=== PATIENT | male | born 1960 | race Caucasian/White ===

== ENCOUNTER 2017-05-27 18:41 | Emergency (ER) | payer OTHER ==
[2017-05-27 18:54] VITALS: RESP 16
--- NOTE | 2017-05-27 18:59 | EDPHY ---
H & P Stated Complaint: R LEG PAIN, REPORTED DVT Time Seen by Provider: 05/27/17 18:51 HPI/ROS: 57-year-old male referred from his primary care physician's office for treatment of a deep vein thrombosis in his right leg. Began having right calf pain and swelling approximately 8 days ago. He travels for work and quite frequently. At that time he went to an urgent care where they diagnosed a tendinitis, however he continued to have pain and worsened swelling and felt he had no reason for a tendinitis. He was seen by his PCP 2 day who referred him for an ultrasound which was positive for deep vein thrombosis. He denies fevers chills, he denies chest pain he denies shortness of breath. He has no family history of clotting disorders. Review of systems As per HPI General no fever no chills no weakness HEENT no eye pain no eye discharge. No eye redness, no sore throat Respiratory no cough, no shortness of breath Cardiac no chest pain, no peripheral edema GI no abdominal pain, no diarrhea, no constipation, no nausea, no vomiting no flank pain, no hematuria, no dysuria Musculoskeletal no myalgias, no joint pain, positive leg edema Heme no easy bruising, no easy bleeding Endo no polyuria, no polydipsia Skin no rashes, no pruritus Neuro no syncope, no dizziness, no headaches Psych is no suicidal ideation, no homicidal ideation Source: Patient - Personal History Current Tetanus/Diphtheria Vaccine: Yes - Medical/Surgical History Hx Asthma: No Hx Chronic Respiratory Disease: No Hx Diabetes: No Hx Cardiac Disease: No Hx Renal Disease: No Hx Cirrhosis: No Hx Alcoholism: No Hx HIV/AIDS: No Hx Splenectomy or Spleen Trauma: No Other PMH: DENIES PMH. 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 - Family History Significant Family History: No pertinent family hx - Social History Smoking Status: Never smoked Alcohol Use: Occasionally Drug Use: None - Physical Exam Exam: 57-year-old male alert and oriented no acute distress nontoxic appearance, afebrile HEENT atraumatic normocephalic, extraocular muscles intact, anicteric Oropharynx negative for erythema negative exudate, tolerating her own secretions Neck supple no meningismus Lungs clear to auscultation bilaterally Heart regular rate and rhythm without murmur rub or gallop Abdomen nondistended normoactive bowel sounds soft nontender Back no CVA tenderness, no step-offs, no spinal tenderness Extremities no cyanosis clubbing Right lower extremity with swelling from mid thigh to foot Pulses all intact, no erythema Full range of motion at ankle, knee, hip Neuro alert and oriented, no focal deficits Constitutional: Initial Vital Signs Temperature (C) 36.7 C 05/27/17 18:41 Heart Rate 72 05/27/17 18:41 Respiratory Rate 16 05/27/17 18:41 Blood Pressure 129/83 H 05/27/17 18:41 O2 Sat (%) 98 05/27/17 18:41 O2 Delivery Mode Room Air Allergies/Adverse Reactions: No Known Allergies Allergy (Unverified 05/27/17 18:50) Home Medications: Medication Instructions Recorded Apixaban [Eliquis] 5 mg PO BID #74 tab 05/27/17 Multi-Day Vitamins 05/27/17 Medical Decision Making ED Course/Re-evaluation: Patient referred to emergency department for deep vein thrombosis of right lower leg. Other than leg edema he is asymptomatic. Labs were sent to establish the safety of beginning anticoagulant. Impression Deep vein thrombosis right lower extremity Plan Eliquis. 10 mg p.o. twice daily x7 days, followed by 5 mg p.o. twice daily x6 months Follow-up with your primary care physician this week. Go to your closest emergency room for shortness of breath, chest pain, worsening leg pain, any signs of significant bleeding. - Data Points Laboratory Results: Laboratory Results 05/27/17 19:21 05/27/17 19:21 Departure - Departure Disposition: Home, Routine, Self-Care Clinical Impression: DVT (deep venous thrombosis) Condition: Good Instructions: Apixaban (By mouth), Deep Venous Thrombosis (ED) Additional Instructions: Apixaban (Eliquis) 10 mg twice a day for 7 days, then 5 mg twice a day . Referrals: Johann Hale MD [Primary Care Provider] - As per Instructions Prescriptions: Apixaban [Eliquis] 5 mg PO BID #74 tab
[2017-05-27 19:32] LABS: % IMMATURE GRANULYOCYTES 0.2 % (0.0-1.1); ABSOLUTE IMMATURE GRANULOCYTES 0.01 10^3/uL (0.00-0.10); ADD DIFF? NO; ADD MORPH? NO; ADD SCAN? NO; ATYPICAL LYMPHOCYTE FLAG 20 (0-99); FRAGMENT RBC FLAG 0 (0-99); HEMOGLOBIN 14.3 g/dL (13.7-17.5); LEFT SHIFT FLG 0 (0-99); LIPEMIA HEMOLYSIS FLAG 90 (0-99); MEAN CELL HEMOGLOBIN 31.2 pg (27.9-34.1); MEAN CELL HEMOGLOBIN CONCENTR. 34.9 g/dL (32.4-36.7); MEAN CELL VOLUME 89.5 fL (81.5-99.8); MEAN PLATELET VOLUME 10.5 fL (8.7-11.7); PLATELET CLUMPS FLAG 0 (0-99); PLATELET COUNT 157 10^3/uL (150-400); RED BLOOD CELL COUNT 4.58 10^6/uL (4.40-6.38); RED CELL DISTRIBUTION WIDTH 12.5 % (11.5-15.2)
[2017-05-27 19:41] LABS: INR 0.95 (0.83-1.16); PROTIME(PATIENT) 12.4 SEC (12.0-15.0)
[2017-05-27 19:42] LABS: APTT 26.6 SEC (23.0-38.0)
[2017-05-27 19:51] LABS: ALANINE AMINOTRANSFERASE 72 IU/L (21-72); ALKALINE PHOSPHATASE 54 IU/L (38-126); ANION GAP 16 mEq/L (8-16); ASPARTATE AMINOTRANSFERASE 50 IU/L (17-59); BILIRUBIN,TOTAL 0.5 mg/dL (0.1-1.4); CALCIUM 8.8 mg/dL (8.5-10.4); CARBON DIOXIDE 22 mEq/l (22-31); CHLORIDE 104 mEq/L (97-110); CREATININE 0.8 mg/dL (0.7-1.3); GLOMERULAR FILTRATION RATE > 60; GLUCOSE 71 mg/dL (70-100); POTASSIUM 4.1 mEq/L (3.5-5.2); SODIUM 142 mEq/L (134-144); TOTAL PROTEIN 6.7 g/dL (6.3-8.2)
[2017-05-27 20:10] VITALS: BP 123/87; PULSE 68; TEMP 97.5; O2SAT 95
== END 2017-05-27 20:40 | disposition home or self-care (01) ==
LOC: CED 18:41
DX: I82.401 Acute embolism and thrombosis of unspecified deep veins of right lower extremity (principal)
CPT/HCPCS: 80053-PO; 85025-PO; 85610-PO; 85730-PO

== ENCOUNTER → 2017-05-27 | Outpatient (CLI) | payer OTHER | LOC: CIMAGING 17:22 | PROVIDERS: ATTEND Emergency Medicine | DX: I82.411 Acute embolism and thrombosis of right femoral vein (principal); M79.604 Pain in right leg | CPT/HCPCS: 93971-PO ==

== ENCOUNTER → 2017-06-14 | Outpatient (CLI) | payer OTHER | LOC: CIMAGING 17:48 | PROVIDERS: ATTEND Internal Medicine Hematology & Oncology | DX: I82.411 Acute embolism and thrombosis of right femoral vein (principal) | CPT/HCPCS: 93971-PO ==